=== PATIENT | female | born 1970 ===

== ENCOUNTER 2018-03-25 06:22 | Day surgery (SDC) | payer MEDICAID ==
[2018-03-04 12:07] VITALS: BMI 37.0
[2018-03-25] MEDS ORDERED: ceFAZolin 1 gm in NS 1 GM/100 ML BAG IVPB ONE (06:54)
[2018-03-25] MEDS ORDERED: Morphine 10 mg/5 ml Oral Soln PO PRN (08:27)
[2018-03-25] MEDS ORDERED: Dextrose 5%/0.45% NS 1,000 ML IV SCH (08:30)
[2018-03-25] MEDS ORDERED: Lactated Ringer's 500 ML IV ONE (09:20)
[2018-03-25] MEDS ORDERED: Propofol 10 mg/ml Inj (20 ML) ONE ×2 (09:26→09:45)
[2018-03-25] MEDS ORDERED: Midazolam 2 MG/2 ML VIAL ONE (09:26)
[2018-03-25] MEDS ORDERED: HYDROmorphone 0.5 mg/0.5 ml ISec IVP PRN (10:10)
[2018-03-25] MEDS ORDERED: Albuterol-Ipratrop 3 mg / 0.5 (3 ml) UD INH PRN (10:11)
[2018-03-25] MEDS ORDERED: Albuterol-Ipratrop 3 mg / 0.5 (3 ml) UD ONE (10:12)
[2018-03-25 11:50] VITALS: BP 146/72; PULSE 89; RESP 18; TEMP 98; O2SAT 97
--- NOTE | 2018-03-25 17:16 | OP ---
PROCEDURE DATE: 03/25/2018 PREOPERATIVE DIAGNOSIS: Chronic tonsillitis. POSTOPERATIVE DIAGNOSIS: Chronic tonsillitis. SURGEON: Fred Chvaes MD PROCEDURE: Tonsillectomy. SIGNIFICANT FINDINGS: 2+ tonsils. DESCRIPTION OF PROCEDURE: The patient was brought into the room, placed in supine position, anesthesia was initiated through an ET tube. The patient was draped in the usual manner. Mouth gag was placed in the oral cavity, opened and suspended on the [employer] resourcing consultant the usual manner. The right tonsils was grabbed and pulled medially. Incision was made in the anterior tonsillar pillar using a plasma knife. Dissections were done between tonsil and tonsillar fossa using a plasma knife until the tonsil was removed. Bleeding was controlled using plasma knife. Next, the other tonsil was grabbed and pulled medially. Incision was made in the anterior tonsillar pillar using plasma knife. Dissections were done between tonsil and tonsillar fossa using a plasma knife until the tonsil was removed. Bleeding was controlled using plasma knife. Both tonsillar beds were rubbed vigorously with a plasma knife wand. No bleeding was noted. Mouth gag was let down for 30 seconds, put back up, no bleeding was noted. The mouth gag was taken out and removed. The patient was taken off anesthesia and taken to the recovery room in a stable manner. Fred Chaves MD
== END 2018-03-25 11:52 | disposition home or self-care (01) ==
LOC: C.SDS 06:22
PROVIDERS: ATTEND Otolaryngology
DX: J35.1 Hypertrophy of tonsils (principal)
CPT/HCPCS: 42826; 88304; J0690; J1170; J2250; J2405; J2704; J3010; J7120

== ENCOUNTER 2018-04-02 12:58 | Emergency (ER) | payer MEDICAID ==
[2018-04-02 12:59] VITALS: BMI 37.0
[2018-04-02 13:17] VITALS: O2SAT 98
[2018-04-02 14:15] LABS: BASO # 0.1 K/uL (0.0-0.2); BASO % 0.9 % (0.0-2.0); EOS # 0.2 K/uL (0.0-0.7); HEMOGLOBIN 10.8 g/dL (11.0-16.0); LYMPH # 1.7 K/uL (1.0-4.3); LYMPH % 18.1 % (20.0-40.0); MEAN CORPUSCULAR HEMOGLOBIN 31.1 pg (27.0-31.0); MEAN CORPUSCULAR HGB CONC 34.6 g/dL (33.0-37.0); MEAN PLATELET VOLUME 6.9 fL (7.2-11.7); MONO # 0.7 K/uL (0.0-0.8); MONO % 7.8 % (0.0-10.0); NEUT # 6.7 K/uL (1.8-7.0); NEUT % 71.2 % (50.0-75.0); RBC 3.46 Mil/uL (3.80-5.20); RED CELL DISTRIBUTION WIDTH 13.6 % (11.5-14.5); WHITE BLOOD COUNT 9.4 K/uL (4.8-10.8)
[2018-04-02 14:33] LABS: ALBUMIN 3.8 g/dL (3.5-5.0); ALT/SGPT 32 U/L (9-52); AST/SGOT 29 U/L (14-36); BLOOD UREA NITROGEN 8 mg/dL (7-17); CALCIUM 8.9 mg/dl (8.6-10.4); GFR AFRICAN-AMERICAN > 60; GFR NON-AFRICAN AMERICAN > 60
--- NOTE | 2018-04-02 14:46 | C.PDOC ---
History Of Present Illness The patient is a 47 year old female who recently underwent a tonsillectomy by Dr. Chaves on 03/25. Patient has some post-operative changes in her throat and is complaining of some trouble swallowing, cough associated with post-nasal drip, and congestion. She was evaluated by Dr. Chaves yesterday, who informed her that her symptoms are not concerning. This morning, patient noted some blood-tongued sputum when she coughed and presents to the ED for further evaluation. She denies fever, chills, and shortness of breath at this time. Time Seen by Provider: 04/02/18 13:30 Chief Complaint (Nursing): Medical Clearance History Per: Patient History/Exam Limitations: no limitations Onset/Duration Of Symptoms: Hrs Current Symptoms Are (Timing): Still Present Additional History Per: Patient Past Medical History Reviewed: Historical Data, Nursing Documentation, Vital Signs Vital Signs: Last Vital Signs Temp 98 F 04/02/18 13:14 Pulse 88 04/02/18 13:14 Resp 18 04/02/18 13:14 BP 133/3 L 04/02/18 13:14 Pulse Ox 98 04/02/18 14:51 - Medical History PMH: Gastritis, HTN, Hypothyroidism Denies: Charles's Disease Surgical History: Tonsillectomy (march 2018) Family History: States: Unknown Family Hx - Social History Hx Alcohol Use: No Hx Substance Use: No - Immunization History Hx Tetanus Toxoid Vaccination: No Hx Influenza Vaccination: Yes Hx Pneumococcal Vaccination: No Review Of Systems Constitutional: Negative for: Fever, Chills ENT: Positive for: Other (post-operative changes in throat s/p tonsillectomy ) Respiratory: Positive for: Cough, Sputum (blood-tinged ). Negative for: Shortness of Breath Physical Exam - Physical Exam Appears: Non-toxic, No Acute Distress Skin: Normal Color, Warm, Dry Head: Atraumatic, Normacephalic Eye(s): bilateral: Normal Inspection Oral Mucosa: Moist Throat: Other (post-operative changes with some erythema, swelling, and white exudative healing tissue ) Neck: Supple Chest: Symmetrical, No Deformity, No Tenderness Cardiovascular: Rhythm Regular, No Murmur Respiratory: Normal Breath Sounds, No Rales, No Rhonchi, No Wheezing Extremity: Normal ROM Neurological/Psych: Oriented x3, Normal Speech, Normal Cognition ED Course And Treatment - Laboratory Results Result Diagrams: 04/02/18 14:12 04/02/18 14:12 Lab Interpretation: No Acute Changes O2 Sat by Pulse Oximetry: 98 (on RA ) Pulse Ox Interpretation: Normal Progress Note: Bloodwork ordered and reviewed. Reevaluation Time: 15:45 Reassessment Condition: Improved - Physician Consult Information Time Consulting Physician Contacted: 15:45 Physician Contacted: Fred Chaves Outcome Of Conversation: He will follow up with the patient in his office. Disposition Counseled Patient/Family Regarding: Studies Performed, Diagnosis, Need For Followup - Disposition Referrals: Fred Chaves MD [Staff Provider] - Disposition: HOME/ ROUTINE Disposition Time: 15:45 Condition: STABLE Prescriptions: Promethazine HCl/Codeine [Prometh-Codein 6.25-10 mg/5 ml] 5 ml PO QID PRN #120 ml PRN Reason: Cough Instructions: Tonsillectomy, Bleeding After Surgery Forms: [employer] (Lithuanian) - Clinical Impression Clinical Impression: Post-tonsillectomy hemorrhage - Scribe Statement The provider has reviewed the documentation as recorded by the Scribe Provider Attestation: All medical record entries made by the Scribe were at my direction and personally dictated by me. I have reviewed the chart and agree that the record accurately reflects my personal performance of the history, physical exam, medical decision making, and the department course for this patient. I have also personally directed, reviewed, and agree with the discharge instructions and disposition.
[2018-04-02 16:03] VITALS: BP 124/78; PULSE 89; RESP 20; TEMP 97.3
== END 2018-04-02 16:00 | disposition home or self-care (01) ==
LOC: C.ER 12:58
DX: K91.840 Postprocedural hemorrhage of a digestive system organ or structure following a digestive system procedure (principal); Y83.8 Other surgical procedures as the cause of abnormal reaction of the patient, or of later complication, without mention of misadventure at the time of the procedure; Y92.89 Other specified places as the place of occurrence of the external cause